=== PATIENT | male | born 1965 | race Caucasian/White ===

== ENCOUNTER 2019-02-19 13:20 | Emergency (ER) | payer BC ==
[2019-02-19] MEDS ORDERED: Lidocaine 1% 20 ML MDV ONE (13:44)
--- NOTE | 2019-02-19 14:01 | EDM.PDOC ---
ED HPI GENERAL MEDICAL PROBLEM - General Chief Complaint: Laceration Stated Complaint: left hand injury Time Seen by Provider: 02/19/19 13:52 Source of Information: Reports: Patient History Limitations: Reports: No Limitations - History of Present Illness INITIAL COMMENTS - FREE TEXT/NARRATIVE: 53 YO WM presents to ER with injury to left index and left middle finger from a automotive fan blade. Pt reports bleeding well controlled. Pt denies any pain but was concerned he may need stitches so he came to ER for evaluation. Pt reports his tetanus is up to date, last given 2015. Pt without any other complaints. fingers are neurovascularly intact with full active ROM. 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) - Related Data Allergies Allergy/AdvReac Type Severity Reaction Status Date / Time No Known Drug Allergies Allergy NKDA Verified 02/19/19 13:26 Home Meds: Home Meds Sulfamethoxazole/Trimethoprim [Septra DS] 1 each PO BID #14 tab 02/19/19 [Rx] Past Medical History - Past Health History Medical/Surgical History: Denies Medical/Surgical History Gastrointestinal History: Reports: None - Past Surgical History Head Surgeries/Procedures: Reports: None HEENT Surgical History: Reports: Visual GI Surgical History: Reports: Cholecystectomy Social & Family History - Family History Family Medical History: Noncontributory - Caffeine Use Caffeine Use: Reports: Soda ED ROS GENERAL - Review of Systems Review Of Systems: See Below Constitutional: Reports: No Symptoms HEENT: Reports: No Symptoms Respiratory: Reports: No Symptoms Cardiovascular: Reports: No Symptoms Endocrine: Reports: No Symptoms GI/Abdominal: Reports: No Symptoms : Reports: No Symptoms Skin: Reports: Wound (skin tear and macerated finger tip to left index and middle fingers) Neurological: Reports: No Symptoms Psychiatric: Reports: No Symptoms Hematologic/Lymphatic: Reports: No Symptoms Immunologic: Reports: No Symptoms ED EXAM, SKIN/RASH Exam: See Below Exam Limited By: No Limitations General Appearance: Alert, WD/WN, No Apparent Distress Throat/Mouth: Normal Inspection, Normal Lips, Normal Teeth, Normal Gums, Normal Oropharynx, Normal Voice, No Airway Compromise Head: Atraumatic, Normocephalic Neck: Normal Inspection, Supple, Non-Tender, Full Range of Motion Respiratory/Chest: No Respiratory Distress, Lungs Clear, Normal Breath Sounds, No Accessory Muscle Use, Chest Non-Tender Cardiovascular: Normal Peripheral Pulses, Regular Rate, Rhythm, No Edema, No Gallop, No JVD, No Murmur, No Rub GI/Abdominal: Normal Bowel Sounds, Soft, Non-Tender, No Organomegaly, No Distention, No Abnormal Bruit, No Mass Back Exam: Normal Inspection, Full Range of Motion, NT Extremities: Normal Inspection, Normal Range of Motion, Non-Tender, No Pedal Edema, Normal Capillary Refill Neurological: Alert, Oriented, CN II-XII Intact, Normal Cognition, Normal Gait, Normal Reflexes, No Motor/Sensory Deficits Psychiatric: Normal Affect, Normal Mood Skin: Wound/Incision (skin tear and macerated finger tip to left index and middle fingers) Location, Skin: Upper Extremity, Left Lymphatic: No Adenopathy Course - Vital Signs Last Recorded V/S: Last Vital Signs Temp 35.9 C 02/19/19 13:27 Pulse 76 02/19/19 13:27 Resp 16 02/19/19 13:27 BP 161/100 H 02/19/19 13:27 Pulse Ox 94 L 02/19/19 13:27 - Orders/Labs/Meds Orders: Active Orders 24 hr Category Date Time Status Fingers Multiple Lt [CR] Stat Exams 02/19/19 13:32 Ordered Meds: Medications Discontinued Medications Generic Name Dose Route Start Last Admin Trade Name Judith PRN Reason Stop Dose Admin Lidocaine HCl Confirm 02/19/19 13:44 Xylocaine 1% Administered 02/19/19 13:45 Dose 20 ml .ROUTE .STK-MED ONE - Radiology Interpretation Free Text/Narrative:: left finger xray- NAD Departure - Departure Time of Disposition: 14:14 Disposition: Home, Self-Care 01 Condition: Good Clinical Impression: Abrasion of finger of left hand - Discharge Information Prescriptions: Sulfamethoxazole/Trimethoprim [Septra DS] 1 each PO BID #14 tab Instructions: Wound Care, Adult Referrals: Shelly Pond MD [Primary Care Provider] - Additional Instructions: 1. discharge home 2. wound care instructions given- change dressing daily 3. septra DS 1 tablet BID x 7 days prophylaxis wound care 4. follow up with PCP for further evaluation and treatment 5. return to ER for worsening symptoms - My Orders Last 24 Hours: My Active Orders 02/19/19 13:32 Fingers Multiple Lt [CR] Stat - Assessment/Plan Last 24 Hours: My Active Orders 02/19/19 13:32 Fingers Multiple Lt [CR] Stat Assessment:: 1. skin tear and macerated finger tip to left index and middle fingers Plan: 1. discharge home 2. wound care instructions given- change dressing daily 3. septra DS 1 tablet BID x 7 days prophylaxis wound care 4. follow up with PCP for further evaluation and treatment 5. return to ER for worsening symptoms
--- NOTE | 2019-02-19 14:10 | CR ---
[id number] RAD/RAD Fingers Left EXAM: LEFT FINGERS 3 VIEWS INDICATION: CAUGHT FINGERS IN ALTERNATOR FAN. COMPARISON: None. DISCUSSION: Soft tissue defect involving the distal aspect of the second digit. No fracture, dislocation or other osseous abnormality. IMPRESSION: 1. Soft tissue injury tip of the second finger. No fracture is identified. Chito Coker MD 02/19/19 1920 Thank you for allowing us to participate in the care of your patient.
[2019-02-19 14:35] VITALS: BP 161/100; PULSE 76
== END 2019-02-19 14:20 | disposition home or self-care (01) ==
LOC: KA.ED 13:20
DX: S61.211A Laceration without foreign body of left index finger without damage to nail, initial encounter (principal); S61.213A Laceration without foreign body of left middle finger without damage to nail, initial encounter; W23.0XXA Caught, crushed, jammed, or pinched between moving objects, initial encounter
CPT/HCPCS: 73140-LT; 99283-25

== ENCOUNTER 2020-10-21 09:54 | Day surgery (SDC) | payer BC ==
[2020-10-21] MEDS ORDERED: Sodium Chloride 0.9% 10 ML Syringe FLUSH PRN (10:00)
[2020-10-21] MEDS ORDERED: Lactated Ringers 1,000 ML IV SCH (10:00)
--- NOTE | 2020-10-21 11:23 | PCM.PN ---
- General Info Date of Service: 10/21/20 - Review of Systems Systems Review Comment:: 55 y/o male with history of colon polyps here for colonoscopy. He is medically stable to proceed. His recent H and P is reviewed and no significant changes are noted. I have discussed the proposed colonoscopy with the patient. He agrees to proceed. - Patient Data Vitals - Most Recent: Last Vital Signs Temp 97.0 F 10/21/20 10:08 Pulse 80 10/21/20 10:08 Resp 20 10/21/20 10:08 BP 141/107 H 10/21/20 10:08 Pulse Ox 98 10/21/20 10:08 Weight - Most Recent: 137.438 kg Med Orders - Current: Current Medications Lactated Ringer's (Ringers, Lactated) 1,000 mls @ 50 mls/hr IV ASDIRECTED ROSAS Sodium Chloride (Sodium Chloride 0.9% 10 Ml Syringe) 10 ml FLUSH Q8HR PRN PRN Reason: keep vein open Sepsis Event Note - Focused Exam Vital Signs: Vital Signs Temp Pulse Resp BP Pulse Ox 10/21/20 10:08 97.0 F 80 20 141/107 H 98 - Problem List Review Problem List Initiated/Reviewed/Updated: Yes - My Orders Last 24 Hours: My Active Orders 10/20/20 14:15 Resuscitation Status Routine 10/21/20 Breakfast Nothing Per Oral Diet [DIET] 10/21/20 10:00 Peripheral IV Care [RC] . DIRECTED Lactated Ringers [Ringers, Lactated] 1,000 ml IV ASDIRECTED Sodium Chloride 0.9% [Saline Flush] 10 ml FLUSH Q8HR PRN Peripheral IV Insertion Adult [OM.PC] Routine 10/21/20 11:00 Verify Patient Consent Obtain [RC] ASDIRECTED - Assessment Assessment:: History of colon polyps - Plan Plan:: Colonoscopy
[2020-10-21] MEDS ORDERED: Propofol 200 MG/20 ML SDV ONE (11:32)
[2020-10-21] MEDS ORDERED: Midazolam 1 MG/ML 2 ML SDV ONE (11:32)
--- NOTE | 2020-10-21 12:00 | PCM.OPNOTE ---
- General Post-Op/Procedure Note Date of Surgery/Procedure: 10/21/20 Operative Procedure(s): Colonoscopy with Polypectomy Findings: Small polyps in transverse colon Pre Op Diagnosis: History of colon polyps Post-Op Diagnosis: Colon Polyps Anesthesia Technique: MAC Primary Surgeon: Leon Turk Pathology: Colon Polyps EBL in mLs: 1 Complications: None Condition: Good
[2020-10-21 12:24] VITALS: BP 109/71; PULSE 71
--- NOTE | 2020-10-21 19:12 | OR ---
DATE OF SURGERY: 10/21/2020 SURGEON: Leon Turk MD PREOPERATIVE DIAGNOSIS: History of colon polyps. POSTOPERATIVE DIAGNOSIS: Colon polyps. OPERATION PERFORMED: Colonoscopy with polypectomy. INDICATIONS FOR SURGERY: This 55-year-old male comes today for surveillance colonoscopy. He has a known history of colon polyps. FINDINGS: In the mid transverse colon; the patient has a cluster of two small polyps. These are near each other. Each are 4-5 mm in size and sessile in configuration. The remainder of the colon appears normal. DESCRIPTION OF PROCEDURE: The patient was taken to the operating room. He was given intravenous sedation and with him in the left lateral decubitus position, digital rectal exam was performed showing no rectal masses. The Olympus colonoscope was inserted into the rectum. Retroflexed examination of the rectal canal is performed. The scope was then carefully advanced under direct visualization throughout the entire length of the colon until the cecum is reached. Cecal acquisition is confirmed by noting the normal internal cecal anatomy including the appendiceal orifice and the ileocecal valve. After examining the cecum, the scope was slowly withdrawn sequentially re-examining the colonic segments. In the mid transverse colon; the two above-described polyps were identified. These were each removed in their entirety with a cold biopsy forceps and submitted as a single specimen. The examination is completed and with no sign of any complication, the scope was removed, and the patient was taken from the operating room in satisfactory condition. ESTIMATED BLOOD LOSS: 1 mL. COMPLICATIONS: None. PROGNOSIS: Good. /[id number]/MODL
== END 2020-10-21 13:05 | disposition home or self-care (01) ==
LOC: KA.SDS 09:54
PROVIDERS: ATTEND Surgery
DX: Z12.11 Encounter for screening for malignant neoplasm of colon (principal); D12.3 Benign neoplasm of transverse colon; I35.8 Other nonrheumatic aortic valve disorders; R79.89 Other specified abnormal findings of blood chemistry; E66.9 Obesity, unspecified; Z68.37 Body mass index [BMI] 37.0-37.9, adult; Z86.010 Personal history of colon polyps; Z98.890 Other specified postprocedural states
CPT/HCPCS: 00812; J2250; J2704

== ENCOUNTER 2023-04-15 20:26 | Emergency (ER) | payer BC ==
[2023-04-15] MEDS ORDERED: Lidocaine 2% 5 ML SDV INJECT ONE (20:29)
[2023-04-15] MEDS ORDERED: Cephalexin 250 MG Cap PO ONE (20:30)
[2023-04-15] MEDS ORDERED: Diphtheria,Pertussis(Acell),Tetanus Vaccine 0.5 ML Syringe IM ONE (20:45)
[2023-04-15] MEDS ORDERED: Bacitracin/Neomycin/Polymyxin B Oint 0.9 GM U/D Packet ONE (21:23)
[2023-04-15] MEDS ORDERED: Bacitracin/Neomycin/Polymyxin B Oint 0.9 GM U/D Packet TOP ONE (21:29)
[2023-04-15 21:38] VITALS: BP 139/102; PULSE 88
== END 2023-04-15 21:40 | disposition home or self-care (01) ==
LOC: KA.ED 20:26
DX: S61.211A Laceration without foreign body of left index finger without damage to nail, initial encounter (principal); Z23 Encounter for immunization; Z79.899 Other long term (current) drug therapy; Z90.49 Acquired absence of other specified parts of digestive tract; W26.8XXA Contact with other sharp object(s), not elsewhere classified, initial encounter
CPT/HCPCS: 12002; 73140; 90471; 90715; 99283; A9270; J3490